=== PATIENT | male | born 1940 | race Caucasian/White ===

== ENCOUNTER → 2021-01-27 07:38 | Outpatient (CLI) | payer MEDICARE, OTHER, SELFPAY ==
--- NOTE | 2021-01-27 | DI.ECHO.S_ITS ---
Version: 1 Study ID: [id number] [place] [address] Name: JENSEN WELCH Study Date: 01/27/2021, 8: 36 AM : 1940 BP: 128 / 75 mmHg Gender: Male Height: 64 in Age: 80 Years Weight: 178 lb BSA: 1.86 mA? Ordering: LORRIE RESENDIZ Referring: LORRIE RESENDIZ Clinician: Kayleigh Ding Reason For Study: AORTIC STENOSIS History: Summary Statements Normal sinus rhythm. Normal LV size and wall thickness; normal wall motion and LV systolic function. EF is 60-65%. Stage I diastolic dysfunction. Moderate LA enlargement; otherwise normal chamber sizes. 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 There is mild aortic regurgitation. 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 There is a pacing lead traversing the tricuspid valve with mild associated TR. Estimated PA systolic pressure is 37 mm Hg assuming RA pressure of 3 mm Hg. Compared to prior study in 2015 TAVR is new and pacing lead is new. Procedure: A two-dimensional transthoracic echocardiogram with color flow and Doppler was performed. The study quality was technically adequate. Comparison is made with the echocardiogram of 12/03/2014. The heart rate ranged between 65-80 bpm during the study. Left Ventricle: The ejection fraction is estimated to be 60-65%. The left ventricle is normal in size and wall thickness. Right Ventricle: The right ventricular systolic function is normal. The right ventricle is normal in size and function. Atria: There is no Doppler evidence for an interatrial shunt. The left atrium is moderately dilated. Right atrial size is normal. Mitral Valve: There is mild mitral regurgitation. The mitral valve leaflets appear mildly thickened, but open well. There is mild mitral annular calcification. Aortic Valve: There is a bioprosthetic aortic valve. There is mild aortic regurgitation. Tricuspid Valve: There is mild tricuspid regurgitation. The right ventricular systolic pressure is estimated to be at least 37 mmHg based on an estimated right atrial pressure of 3 mm Hg. The tricuspid valve is normal in structure and function. Pulmonic Valve: The pulmonic valve is not well seen, but is grossly normal. Great Vessels: The dimensions of the ascending aorta are normal. The IVC is of normal diameter and collapses greater than 50% with a sniff. This suggests a low right atrial pressure of 3 mm Hg. Pericardium/ Pleura: There is no pericardial effusion. There is no pleural effusion. 2D and M-Mode Measurements and Calculations LVIDd: 4.6 cm LVOT diam: 1.93 cm LVIDs: 3.0 cm asc Aorta Diam: 3.3 cm IVSd: 0.88 cm Ao Arch Diam (Prox Trans): 3.0 cm LVPWd: 1.05 cm LV aguilar. diameter/BSA (cm/m^2): 2.45 LV sys. diameter/BSA (cm/m^2): 1.63 RVD1 (basal): 3.4 cm IVC diam: 1.77 cm TAPSE: 1.46 cm LA A4 area: 23.5 ocean lifeguard specialist? RA area: 19.4 ocean lifeguard specialist? LA A2 area: 23.9 ocean lifeguard specialist? RA long axis: 5.1 cm LA length (vol): 5.9 cm RA vol: 62.0 ml LA vol: 81.2 ml RA : 33.3 ml/mA? LA vol index: 43.6 ml/mA? Doppler Measurements and Calculations Ao V2 max: 208.9 cm/sec LVOT Max Luis Fernando: 81.1 cm/sec Ao V2 mean: 142.5 cm/sec LV V1 max P.6 mmHg Ao V2 VTI: 41.6 cm LV V1 VTI: 16.9 cm Ao max P.5 mmHg Ao mean P.3 mmHg LAURA(I,D): 1.19 ocean lifeguard specialist? LAURA(V,D): 1.14 ocean lifeguard specialist? LAURA indexed to BSA (cm^2/m^2): 0.64 sev ratio: 0.41 AI P1/2t: 526.4 msec AI dec slope: 274.4 cm/secA? MV E max luis fernando: 170.7 cm/sec MV dec time: 0.13 sec MV A max luis fernando: 1.01 cm/sec MV E/A: 169.6 Med Peak E' Luis Fernando: 5.5 cm/sec Lat Peak E' Luis Fernando: 7.8 cm/sec E/e' average: 26.3 TR max luis fernando: 289.7 cm/sec PA mean P.1 mmHg TR max P.6 mmHg PA V2 max: 137.9 cm/sec Electronically signed by: Lorrie Resendiz M.D. 01/28/2021, 10: 45 AM
== END ==
PROVIDERS: Referring Provider Internal Medicine; Visit Provider Internal Medicine
DX: I08.3 Combined rheumatic disorders of mitral, aortic and tricuspid valves (principal); Z95.0 Presence of cardiac pacemaker; Z95.2 Presence of prosthetic heart valve
CPT/HCPCS: 93306